=== PATIENT | female | born 1975 | race Caucasian/White ===

== ENCOUNTER 2017-06-04 07:51 | Inpatient (IN) ==
[2017-06-04] MEDS ORDERED: SODIUM CHLORIDE 0.9% 1,000 ML IV STA (08:38)
[2017-06-04] MEDS ORDERED: KETOROLAC 30 MG/1 ML VIAL IV STA (08:38)
[2017-06-04] MEDS ORDERED: KETOROLAC 30 MG/1 ML VIAL ONE (08:40)
--- NOTE | 2017-06-04 08:47 | Emergency Department Note ---
Jeremiah [place] Brooke, am scribing for, and in the presence of, Bruno Cheng MD 08:40 . Skylar [place] James D, MD, personally performed the services described in this documentation, ascribed by Mary Jo Daniles in my presence, and it is both accurate and complete [id number] . Arrival - Arrival Chief Complaint: Urogenital - Female Stated Complaint: fever 103 elevated sugar level ED Nursing Triage Note: fever for two days. pt c/o lower back pain and pressure when she urinates. reports hx of uti and kidney stones. has taken asa at home one hour ago Mode of Arrival: Wheelchair Limitations: No Limitations Source: Patient, RN Notes Reviewed Time Seen by Provider: 06/04/17 08:29 - History of Present Illness HPI Narrative: Patient is a 41 year old female who presents to the ED with c/o low back pain and dysuria that has been ongoing for the past two days. Patient says the low back pain is located on the right side. She says she does have some dysuria but says she also has "pressure" when urinating. Patient does have a history of kidney stones and says the pain she is having now feels like the pain she had with previous stones. Patient also has PMHx of HTN, migraines, NIDDM, and pancreatitis. Patient's Primary Care Provider is Dr. Hua. Onset (ago): day(s) (2) Date of Last Menstrual Period: last week Allergies/Adverse Reactions: Allergies Allergy/AdvReac Type Severity Reaction Status Date / Time codeine Allergy RASH Verified 12/29/15 22:58 Home Medications: Home Medications Medication Instructions Recorded Confirmed Type No Known Home Medications [No 06/04/17 06/04/17 History Known Home Medications] Review of System - Review of System 12 point system: reviewed and no additional remarkable complaints except as stated - Review of System Constitutional: Absent: fever Respiratory: Absent: respiratory distress Genitourinary female: Present: dysuria, other (pressure when urinating) Musculoskeletal: Present: lower back pain (right) Skin: Absent: rash Medical,Surgical,& Family Hx - Medical History Cardio: History of: Hypertension (NO LONGER TAKING MEDS) Neurology: History of: Migraine Endocrine: History of: Diabetes Mellitus (NIDDM) Gastrointestinal: History of: Pancreatitis (2005 (GALLSTONE CAUSE)) - Surgical History Reproductive Surgeries: Surgical HX of;: Section (X1) - Family History Family History: Reports;: Family Diabetes (MOM/SISTER), Family Heart Disease ( MOM/DAD/SISTER), Family Hypertension (MOM), Family Stroke (MOM) - Social History Smoking Status: Current every day smoker Exam Vital Signs: Vital Signs Temperature 100.3 F H 06/04/17 08:52 Pulse Rate 112 H 06/04/17 08:16 Respiratory Rate 22 06/04/17 08:16 Blood Pressure 125/66 06/04/17 08:16 O2 Sat by Pulse Oximetry 100 06/04/17 08:08 GENERAL: This is a well-nourished well-developed disheveled white female in no apparent distress. VITAL SIGNS: Reviewed HEENT: Head is atraumatic and normocephalic. Pupils are equal round react to light. Extraocular movements are intact. Oropharynx is benign with moist mucous membranes. NECK: Neck is soft and supple without tenderness. There are no masses. There is no lymphadenopathy. LUNGS: Lungs are clear to auscultation. Chest rises symmetrically. There is no chest wall tenderness. CV: Heart is regular rate and rhythm without murmurs rubs or gallops. ABDOMEN: Abdomen is soft, nontender to palpation. There are no abdominal abnormal masses palpated. There is no organomegaly. Bowel sounds are present and active. Minimal left CVA tenderness SKIN: Skin is warm and dry. No rash. EXTREMITIES: Patient has full range of motion without tenderness. There is no pedal edema. NEUROLOGIC: Awake alert and oriented 4. Cranial nerves II through XII are grossly intact. Motor is 5 over 5 in all extremities bilaterally. Course Course Narrative: Patient was given IV fluids and IV Rocephin in the emergency department. - Consultations Consultation #1: Discussed with hospitalist. Patient will be admitted to their service. Time: 10:27 Results - Labs CBC & BMP: 06/04/17 09:45 06/04/17 09:45 Lab Results: I have reviewed the patients labs Labs: Laboratory Tests 06/04/17 08:44 Urine pH 5.0 Ur Specific [place] 1.016 Urine Glucose (UA) >=500 Urine Leukocytes Moderate H Urine RBC 65 Urine WBC 120 - Diagnostic Findings Procedure: KUB x-ray: image reviewed by me (No evidence of ureteral stone.) Critical Care Time Critical Care Time: No Disposition Clinical Impression: Acute pyelonephritis, Diabetes mellitus Case discussed with: patient Disposition: Still a Patient Condition: Stable Time of Disposition: 10:27
[2017-06-04 09:04] LABS: Apearance,Urine CLOUDY (Clear); Bacteria,Urine Moderate /HPF (Few); Bilirubin,Urine Negative (Negative); Blood, Urine Large mg/dL (Negative); Glucose,Urine (UA) >=500 mg/dL (Negative); Hyaline Casts,Urine 5 /LPF (0-3); Ketones,Urine Negative (Negative); Mucus,Urine Many /LPF (Occasional); Nitrite,Urine Negative (Negative); Protein,Urine 100 MG/DL; RBC,Urine 65 /HPF (0-4); Squamous Epithelial Cell,Urine Occasional /HPF (0-10); Urine Color Yellow (Yellow); Urine Specific Gravity 1.016 (1.001-1.035); Urine Urobilinogen < 2.0 EU/DL (0.2-1.0); WBC,Urine 120 /HPF (0-6)
--- NOTE | 2017-06-04 09:22 | CT Report ---
CT abdomen pelvis wo con Indication: Abdominal pain. History of ureter stones. CT ABDOMEN AND PELVIS WITHOUT CONTRAST DLP: 634 mGy*cm. One or more of the following dose reduction techniques was used: Automated exposure control, adjustment of the mA and/or kV according the patient size, or use of iterative reconstruction techniques. Comparison: 06/08/2014. Technique: Axial noncontrast CT images of the abdomen and pelvis were obtained. Abdomen: Right kidney and ureter are unremarkable. Left kidney is enlarged with perinephric fat stranding and a small amount of inflammation tracking along the proximal left ureter. Small amount of left hydronephrosis noted. No calcified stones are present within the left urinary collecting system or bladder. Bladder is decompressed completely. Heart size is normal. Lung bases are clear. Fatty infiltration of the liver is present. Unenhanced liver, gallbladder, spleen, pancreas and right adrenal gland remain unremarkable. Partially calcified 16mm mass of the left adrenal gland is present, previously 12 mm in size and 2014. No bowel obstruction. No free fluid or free air. No pathologic lymphadenopathy. Pelvis: Normal appendix without inflammation. Urinary bladder is contracted. Uterus and adnexal structures are within normal limits. Rectosigmoid colon is unremarkable. No destructive bone lesions. Impression: 1. Left perinephric inflammation, enlargement of left kidney, minimal left hydronephrosis and mild prominence of the left proximal ureter without urolithiasis identified. Suspect recently passed stone. Alternatively, consider infection such as pyelonephritis. 2. Partially calcified left adrenal mass, now 16 mm in size, previously 12 mm 3 years ago. PROCEDURE INTERPRETED AT [facility] DEPARTMENT OF RADIOLOGY Final Report Signed by: Yonathan Eastman M.D.
--- NOTE | 2017-06-04 09:26 | XRay Report ---
XR KUB Indication: Ureter stone. Abdomen one view: No small bowel dilatation. Increased stool and gas projects over the colon, without dilatation. No evidence of free air. No abnormal calcifications or masses. Impression: Constipation without obstruction. No urolithiasis identified on plain film, confirmed on CT. PROCEDURE INTERPRETED AT [facility] DEPARTMENT OF RADIOLOGY Final Report Signed by: Yonathan Eastman M.D.
[2017-06-04] MEDS ORDERED: cefTRIAXone 1,000 MG in SODIUM CHLORIDE 0.9% 100 ML IV STA (09:40)
[2017-06-04] MEDS ORDERED: cefTRIAXone 1,000 MG VIAL ONE (09:41)
[2017-06-04 09:54] LABS: Basophils % 0.2 % (0.0-0.8); Hematocrit 31.3 VOL% (35.7-47.0); Hemoglobin 10.2 GM/DL (12.0-16.0); Immature Granulocytes Absolute 0.21 #; Lymphocytes # 1.2 10*3/uL (1.4-4.0); Lymphocytes % 5.9 % (21.3-54.2); Mean Corpuscular HGB Conc 32.6 GM/DL (32-36); Mean Corpuscular Hemoglobin 26 PG (27-34); Mean Corpuscular Volume 78.6 FL (87-102); Mean Platelet Volume 10.3 FL (9.6-12.0); Monocytes # 1.5 10*3/uL (0.11-0.8); Monocytes % 7.3 % (1.7-12.7); Neutrophils % 85.6 % (38.7-73.9); Platelet Count 247 T/CUMM (130-400); Red Blood Count 3.98 MC/CUMM (3.8-5.5); Red Cell Distribution Width 16.1 % (9.3-17.3)
[2017-06-04 10:15] LABS: Calcium 8.2 MG/DL (8.5-10.1); Osmolality,Calculated 275.7 MOS/KG (273-304); Potassium 4.4 MMOL/L (3.5-5.1)
[2017-06-04 10:17] LABS: Band Neutrophils 3 % (0-10); Giant Platelets Few; Hypochromasia 1+; Lymphocytes 10 % (20-55); Platelet Estimate Adequate; Segmented Neutrophils 78 % (50-85); Total Cells Counted 100
--- NOTE | 2017-06-04 11:49 | Hospitalist History & Physical ---
Assessment and Plan - Time spent with patient Time spent with patient: Greater than 30 minutes Time spent discussing smoking cessation with patient: 3 to 10 minutes (1) Acute pyelonephritis Status: Acute Assessment and plan: 41-year-old white female with a history of UTI and kidney stones. Reports today with left flank pain radiating to groin. CT shows perinephritic inflammation in the left kidney. No calculi are present. Patient has been started on IV Rocephin empirically. Maintenance IV fluids. Urine cultures and sensitivity pending. Follow-up with CBC, BMP in the a.m. Current Visit: Yes (2) UTI (urinary tract infection) Status: Acute Assessment and plan: Likely secondary to acute pyelonephritis. Urine cultures pending. Patient has been started on IV Rocephin Current Visit: Yes (3) Hypertension Status: Acute Assessment and plan: Currently well controlled on home medications. Continue home medications upon reconciliation. Current Visit: Yes (4) Diabetes mellitus Status: Acute Assessment and plan: Accu-Cheks before meals at bedtime. Sliding scale insulin as needed. Current Visit: Yes (5) Tobacco use Status: Acute Assessment and plan: Patient admits to smoking 1 pack per day. She is not currently interested in quitting. She will need a nicotine patch while here. Current Visit: Yes History of Present Illness Chief complaint: Low back pain, urinary pressure History of present illness: Ms. Wood is a 41 year old white female with past medical history significant for hypertension, ury-[id number] diabetes mellitus, UTI, renal calculi and tobacco abuse who presents to the ED today with complaints of low back pain and fever with onset 2 days ago. Patient reports that she was having mild dysuria with "pressure" upon urination. She states that she has had pains like this before related to kidney stones a UTI. She saw her PCP at [facility] on yesterday who told her that her symptoms were suspicious for pyelonephritis and instructed her to come to the ER. Patient decided to go home and subsequently reports subjective fever and diaphoresis with nausea and vomiting. On admission, patient is febrile with a temp of 100.3 and tachycardia with a pulse rate of 112. She does report left flank pain which radiates to the groin. She confirms decreased appetite, dysuria. Patient denies headache, blurry vision, chest pain, shortness of breath, abdominal pain, hematuria. CT of the abdomen and pelvis show enlarged left kidney with perinephric fat and a small amount of inflammation tracking along the proximal left ureter with no urolithiasis. KUB is unremarkable. Lab work is significant for WBC 21.0, hemoglobin 10.2, hematocrit 31.3, BUN 9, creatinine 0.90, glucose 132. Urinalysis shows elevated urobilinogen and moderate leukocytes. UC results of follow. Case has been discussed with Dr. Cheng, ER physician, and Dr. Palm, admitting physician, and the patient will be admitted to the hospital medicine service for further evaluation and treatment. Patient is a full code. Home medications have been reviewed and reconciled. Home Medications Medication Instructions Recorded Confirmed Type No Known Home Medications [No 06/04/17 06/04/17 History Known Home Medications] Allergies Allergy/AdvReac Type Severity Reaction Status Date / Time codeine Allergy RASH Verified 12/29/15 22:58 Medical,Surgical,& Family Hx - Medical History Cardio: History of: Hypertension (NO LONGER TAKING MEDS) Neurology: History of: Migraine Endocrine: History of: Diabetes Mellitus (NIDDM) Gastrointestinal: History of: Pancreatitis (2006 (GALLSTONE CAUSE)) - Surgical History Reproductive Surgeries: Surgical HX of;: Section (X1) - Family History Family History: Reports;: Family Diabetes (MOM/SISTER), Family Heart Disease ( MOM/DAD/SISTER), Family Hypertension (MOM), Family Stroke (MOM) - Social History Smoking Status: Current every day smoker (Smokes 1 pack per day) Have you smoked in the last 12 months: Yes Time spent discussing smoking cessation with patient: 3 to 10 minutes (Patient reports a desire to quit smoking "one day". Will need a nicotine patch while hospitalized.) Frequency of Alcohol Use: Rarely Type of Drug Use: None Marital Status: Lives With:: Spouse Functional capacity: independent ambulation 12 point system: reviewed and no additional remarkable complaints except as stated Exam - Constitutional Vitals: Period Temp Pulse Resp BP Sys/Burton Pulse Ox Last 24 Hr 100.3 F-100.3 F 112-112 22-22 125-125/66-66 100 Exam: General appearance: overweight, no acute distress - Head Head exam: Present: normocephalic, atraumatic - Eye Eye exam: Present: EOMI. Absent: conjunctival injection, nystagmus Pupils: Present: KENAN, normal accommodation - ENT ENT exam: Present: normal exam, normal external ear exam - Neck Neck exam: Present: normal inspection. Absent: lymphadenopathy, tenderness, thyromegaly - Respiratory Respiratory exam: Present: clear to auscultation bilaterally. Absent: rales, rhonchi, wheezes - Cardiovascular Cardiovascular exam: Present: Tachycardia. Absent: carotid bruit, gallop, rubs - GI/Abdominal GI/Abdominal exam: Present: normal bowel sounds. Absent: ascites, distended, mass - Extremities Exam Extremities exam: Present: normal inspection, normal capillary refill. Absent: edema - Back Exam Back exam: CVA tenderness (L) absent: CVA tenderness (R) - Neurological Exam Neurological exam: Present: alert, oriented X3, CN II-XII intact, reflexes normal - Psychiatric Psychiatric exam: Present: normal affect, normal mood - Skin Skin exam: Present: normal color, warm, dry Results - Labs CBC & BMP: 06/04/17 09:45 06/04/17 09:45 Lab Results: I have reviewed the past 24 hour labs
[2017-06-04] MEDS ORDERED: GLUCAGON 1 MG VIAL IM PRN (12:03)
[2017-06-04] MEDS ORDERED: NICOTINE 21 MG/24 HR PATCH TRANSDERM PRN (12:03)
[2017-06-04] MEDS ORDERED: DEXTROSE 50% 25 GM/50 ML SYRINGE IV PRN (12:03)
[2017-06-04] MEDS: ONDANSETRON 4 MG/2 ML VIAL IV PRN ×2 (13:25→20:26)
[2017-06-04] MEDS: ACETAMINOPHEN 325 MG TABLET PO PRN ×2 (13:25→17:24)
[2017-06-04] MEDS: SODIUM CHLORIDE 0.9% 1,000 ML IV SCH (13:27)
[2017-06-04] MEDS: PANTOPRAZOLE 40 MG TABLET PO SCH (13:27)
[2017-06-04] MEDS: INSULIN LISPRO 100 UNIT/ML SUBCUT SCH ×2 (17:01→23:40)
[2017-06-04] MEDS: LEVOFLOXACIN INJ 750 MG in PREMIX 1 EACH IV SCH (17:23)
[2017-06-04] MEDS ORDERED: TOPIRAMATE 25 MG TABLET PO ONE (19:23)
[2017-06-04] MEDS: KETOROLAC 30 MG/1 ML VIAL IV PRN (20:25)
[2017-06-05] MEDS: SODIUM CHLORIDE 0.9% 1,000 ML IV SCH ×2 (03:24→15:00)
[2017-06-05] MEDS: KETOROLAC 30 MG/1 ML VIAL IV PRN ×2 (03:25→09:37)
[2017-06-05] MEDS: ONDANSETRON 4 MG/2 ML VIAL IV PRN ×3 (03:25→21:21)
[2017-06-05 05:04] LABS: Basophils % 0.2 % (0.0-0.8); Eosinophils % 0.3 % (0.00-10.9); Hematocrit 29.7 VOL% (35.7-47.0); Hemoglobin 9.5 GM/DL (12.0-16.0); Immature Granulocytes Absolute 0.14 #; Lymphocytes # 0.7 10*3/uL (1.4-4.0); Lymphocytes % 4.9 % (21.3-54.2); Mean Corpuscular Hemoglobin 26 PG (27-34); Mean Corpuscular Volume 79.8 FL (87-102); Mean Platelet Volume 10.9 FL (9.6-12.0); Monocytes # 1.3 10*3/uL (0.11-0.8); Monocytes % 8.9 % (1.7-12.7); Neutrophils # 12.4 10*3/uL (1.4-7.4); Neutrophils % 84.7 % (38.7-73.9); Platelet Count 200 T/CUMM (130-400); Red Blood Count 3.72 MC/CUMM (3.8-5.5); Red Cell Distribution Width 16.2 % (9.3-17.3); White Blood Count 14.6 T/CUMM (4-12)
[2017-06-05 05:29] LABS: Osmolality,Calculated 284.4 MOS/KG (273-304); Potassium 3.8 MMOL/L (3.5-5.1)
[2017-06-05 05:38] LABS: Band Neutrophils 4 % (0-10); Hypochromasia 1+; Lymphocytes 7 % (20-55); Ovalocytes Slight; Platelet Estimate Adequate; Segmented Neutrophils 81 % (50-85); Total Cells Counted 100
[2017-06-05 05:39] LABS: Giant Platelets Few
[2017-06-05] MEDS: INSULIN LISPRO 100 UNIT/ML SUBCUT SCH ×3 (08:32→20:18)
[2017-06-05] MEDS: PANTOPRAZOLE 40 MG TABLET PO SCH (08:33)
[2017-06-05] MEDS: cefTRIAXone 1,000 MG in SODIUM CHLORIDE 0.9% 100 ML IV SCH (09:44)
--- NOTE | 2017-06-05 12:00 | Hospitalist Progress Note ---
Assessment and Plan (1) Leukocytosis Status: Acute Assessment and plan: We will repeat his CBC in the morning to target his sleep white count of less than 10,000. Patient is afebrile at this point. Current Visit: Yes (2) Acute pyelonephritis Status: Acute Assessment and plan: Patient is a gram-negative ran in the urine. I do not see any report on blood cultures yet. This patient will have repeat CBC BMP and magnesium tomorrow. Continue her on double coverage with ceftriaxone and levofloxacin. Verify and exact home treatment with oral antibiotics with the antibiogram to calm. She does have history of kidney stones and therefore about an antibiotic with delayed kill and good penetration in the urine, like a quinolone should be the choice. Treat for 10 extra days. Also give a probiotic for the same length of time. Current Visit: Yes Hospitalist: Subjective Interval history: Patient has been seen interviewed and examined and chart has been reviewed. A history of renal stones admitted yesterday with no nausea vomiting abdominal pain found to have pyelonephritis by CT scan. There is no obstructive pathology patient stated that had some bloody urine today with some julius in the collecting sieve. He still has a leukocytosis of 14,000 he has a gram-negative ran in the urine pending antibiogram. He was quite sick when she probably presented here to the point that I am treating her with both ceftriaxone and levofloxacin. I will hold off on her discharge until we know the antibiogram of this or at least when she feels better within normal white counts tomorrow at that point consider treating her with only one antibiotics orally and that would be levofloxacin for 10 days. Exam - Constitutional Vitals: Period Temp Pulse Resp BP Sys/Burton Pulse Ox Last 24 Hr 97.1 F-102.2 F 75-111 18-20 99-115/52-64 93-98 General appearance: over weight - Head Head exam: Present: normocephalic, atraumatic - Eye Eye exam: Present: EOMI Pupils: Present: KENAN - Respiratory Respiratory exam: Present: clear to auscultation bilaterally - Cardiovascular Cardiovascular exam: Present: regular rate and rhythm - GI/Abdominal GI/Abdominal exam: Present: normal bowel sounds, soft - Extremities Exam Extremities exam: Present: full ROM - Neurological Exam Neurological exam: Present: alert, oriented X3, CN II-XII intact - Psychiatric Psychiatric exam: Present: normal affect, normal mood - Skin Skin exam: Present: normal color, warm, dry Results - Labs CBC & BMP: 06/05/17 04:32 06/05/17 04:32 Lab Results: I have reviewed the past 24 hour labs (Gram-negative ran in the urine pending antibiogram. Repeat a BMP magnesium and CBC in the morning)
[2017-06-05] MEDS: LACTOBACILLUS RHAMNOSUS GG CAPSULE PO SCH ×2 (15:38→21:20)
[2017-06-05] MEDS: TOPIRAMATE 25 MG TABLET PO SCH ×2 (16:07→21:19)
[2017-06-05] MEDS: LEVOFLOXACIN INJ 750 MG in PREMIX 1 EACH IV SCH (20:21)
[2017-06-05] MEDS: IBUPROFEN 800 MG TABLET PO PRN (21:28)
[2017-06-06] MEDS: INSULIN LISPRO 100 UNIT/ML SUBCUT SCH ×3 (00:51→11:57)
[2017-06-06] MEDS: SODIUM CHLORIDE 0.9% 1,000 ML IV SCH ×2 (02:54→14:12)
[2017-06-06 05:31] LABS: Basophils % 0.3 % (0.0-0.8); Eosinophils % 0.3 % (0.00-10.9); Hematocrit 27.3 VOL% (35.7-47.0); Hemoglobin 8.8 GM/DL (12.0-16.0); Immature Granulocytes % 1.3 %; Immature Granulocytes Absolute 0.09 #; Lymphocytes # 1.3 10*3/uL (1.4-4.0); Lymphocytes % 18.2 % (21.3-54.2); Mean Corpuscular HGB Conc 32.2 GM/DL (32-36); Mean Corpuscular Hemoglobin 26 PG (27-34); Mean Corpuscular Volume 80.1 FL (87-102); Mean Platelet Volume 11.4 FL (9.6-12.0); Monocytes % 14.8 % (1.7-12.7); Neutrophils # 4.5 10*3/uL (1.4-7.4); Neutrophils % 65.1 % (38.7-73.9); Platelet Count 188 T/CUMM (130-400); Red Blood Count 3.41 MC/CUMM (3.8-5.5); Red Cell Distribution Width 16.4 % (9.3-17.3); White Blood Count 6.9 T/CUMM (4-12)
[2017-06-06 06:02] LABS: Band Neutrophils 4 % (0-10); Giant Platelets Few; Hypochromasia Slight; Lymphocytes 15 % (20-55); Platelet Estimate Normal; Segmented Neutrophils 75 % (50-85); Total Cells Counted 100
[2017-06-06 06:03] LABS: Microcytosis Slight
[2017-06-06 06:11] LABS: Calcium 8.2 MG/DL (8.5-10.1); Magnesium 2.3 MG/DL (1.8-2.4); Osmolality,Calculated 283.8 MOS/KG (273-304); Potassium 4.2 MMOL/L (3.5-5.1)
[2017-06-06] MEDS: PANTOPRAZOLE 40 MG TABLET PO SCH (08:20)
[2017-06-06] MEDS: TOPIRAMATE 25 MG TABLET PO SCH (08:20)
[2017-06-06] MEDS: IBUPROFEN 800 MG TABLET PO PRN (08:21)
[2017-06-06] MEDS: cefTRIAXone 1,000 MG in SODIUM CHLORIDE 0.9% 100 ML IV SCH (08:22)
[2017-06-06] MEDS: LACTOBACILLUS RHAMNOSUS GG CAPSULE PO SCH (08:22)
[2017-06-06 11:42] VITALS: BP 108/61
--- NOTE | 2017-06-06 13:11 | Discharge Summary ---
<Otilia Conrad - Last Filed: 06/06/17 16:21> Hospital Course - Hospital Course Hospital Course: Ms. Wood is a 41 year old white female with past medical history significant of hypertension, lau-cweabwb-dilhiligc diabetes mellitus, UTI, renal calculi and tobacco abuse who presents to the ED on 06/04 with complaints of low back pain and fever that started 2 days ago. Patient reports that she was having mild dysuria with "pressure" upon urination. She states that she has had pains like this before when she had an UTI. She saw her PCP at [facility] care [facility] who instructed her to come to the ER. Patient decided to go home instead and later experienced a subjective fever and diaphoresis with nausea and vomiting. On admission, patient had a temp of 100.3 and tachycardia with a pulse rate of 112. She reported left flank pain which radiates to the groin. CT of the abdomen and pelvis show enlarged left kidney with perinephric fat and a small amount of inflammation tracking along the proximal left ureter with no urolithiasis. KUB was unremarkable. Lab work reveals of WBC 21.0. Urinalysis shows elevated urobilinogen and moderate leukocytes. Patient was admitted to the hospital medicine service. Pt. was started on IV antibiotics ( ceftriaxone and levofloxacin). Patient's symtpoms improved. She was transitioned to PO Levaquin. Pt. is stable for discharge. Discharge Plan - Discharge Data Disposition: Disch To Home/Self Care - Discharge Medications New Lactobacillus Rhamnosus GG [Culturelle] 1 capsule PO BID #20 capsule Levofloxacin Tab [Levaquin Tab] 750 mg PO DAILY #10 tablet - Follow Up or Referral - Forms/Instructions Exam - Constitutional Vitals: Period Temp Pulse Resp BP Sys/Burton Pulse Ox Last 24 Hr 96.6 F-99.5 F 61-81 18-20 94-140/61-80 93-99 Discharge Results Labs on day of discharge: Labs from last 24 hours 06/06/17 06/06/17 06/06/17 10:54 07:39 04:58 WBC RBC Hgb Hct MCV MCH MCHC RDW Plt Count MPV Neut % (Auto) Lymph % (Auto) Frontier % (Auto) Eos % (Auto) Baso % (Auto) Neut # (Auto) Lymph # (Auto) Frontier # (Auto) Eos # (Auto) Baso # (Auto) Total Counted Immature Gran % Nucleated RBC % Immature Gran # Segmented Neutrophils Band Neutrophils Lymphocytes Monocytes Nucleated RBCs # Platelet Estimate Giant Platelets Immature Plt Fraction Hypochromasia Microcytosis Sodium Potassium Chloride Carbon Dioxide Anion Gap BUN Creatinine GFR Calculation BUN/Creatinine Ratio Glucose POC Glucose 116 H 100 107 H Calculated Osmolality Calcium Magnesium 06/06/17 06/06/17 06/06/17 04:35 04:35 00:31 WBC 6.9 D RBC 3.41 L Hgb 8.8 L Hct 27.3 L MCV 80.1 L MCH 26 L MCHC 32.2 RDW 16.4 Plt Count 188 MPV 11.4 Neut % (Auto) 65.1 Lymph % (Auto) 18.2 L Frontier % (Auto) 14.8 H Eos % (Auto) 0.3 Baso % (Auto) 0.3 Neut # (Auto) 4.5 Lymph # (Auto) 1.3 L Frontier # (Auto) 1.0 H Eos # (Auto) 0.0 Baso # (Auto) 0.0 Total Counted 100 Immature Gran % 1.3 Nucleated RBC % 0.0 Immature Gran # 0.09 Segmented Neutrophils 75 Band Neutrophils 4 Lymphocytes 15 L Monocytes 6 Nucleated RBCs # 0.00 Platelet Estimate Normal Giant Platelets Few Immature Plt Fraction 0.0 Hypochromasia Slight Microcytosis Slight Sodium 144 Potassium 4.2 Chloride 113 H Carbon Dioxide 23 Anion Gap 12.2 BUN 11 Creatinine 0.90 GFR Calculation 89 BUN/Creatinine Ratio 12.00 Glucose 89 POC Glucose 103 Calculated Osmolality 283.8 Calcium 8.2 L Magnesium 2.3 06/05/17 16:19 WBC RBC Hgb Hct MCV MCH MCHC RDW Plt Count MPV Neut % (Auto) Lymph % (Auto) Frontier % (Auto) Eos % (Auto) Baso % (Auto) Neut # (Auto) Lymph # (Auto) Frontier # (Auto) Eos # (Auto) Baso # (Auto) Total Counted Immature Gran % Nucleated RBC % Immature Gran # Segmented Neutrophils Band Neutrophils Lymphocytes Monocytes Nucleated RBCs # Platelet Estimate Giant Platelets Immature Plt Fraction Hypochromasia Microcytosis Sodium Potassium Chloride Carbon Dioxide Anion Gap BUN Creatinine GFR Calculation BUN/Creatinine Ratio Glucose POC Glucose 101 Calculated Osmolality Calcium Magnesium DS: Provider Date of admission: 06/04/17 10:43 Primary care physician: . No PCP Attending physician on admission: Miah Palm MD Discharging clinician: Otilia Conrad NP <Roya Hannah - Last Filed: 06/22/17 14:02> Hospital Course - Time spent with patient Time with patient DS: Less than 30 minutes Diagnosis - Discharge Diagnosis (1) Acute pyelonephritis Status: Resolved (2) Diabetes mellitus Status: Chronic (3) Hypertension Status: Chronic (4) Leukocytosis Status: Resolved Discharge Plan - Discharge Data Condition at Discharge: Stable Discharge Diet: advance to your usual diet Activity: increase activity as tolerated Hygiene: no restrictions Weight Bearing at Discharge: weight bear as tolerated Contact your physician if you experience:: fever over 101, Nausea/Vomiting Exam - Constitutional General appearance: normal weight - Head Head exam: Present: normocephalic, atraumatic - Eye Eye exam: Present: EOMI Pupils: Present: KENAN - ENT ENT exam: Present: normal exam - Neck Neck exam: Present: normal inspection - Respiratory Respiratory exam: Present: clear to auscultation bilaterally. Absent: rhonchi, wheezes - Cardiovascular Cardiovascular exam: Present: regular rate and rhythm - GI/Abdominal GI/Abdominal exam: Present: normal bowel sounds, soft. Absent: tenderness - Extremities Exam Extremities exam: Present: normal inspection - Back Exam Back exam: Present: normal inspection - Neurological Exam Neurological exam: Present: alert, oriented X3 - Psychiatric Psychiatric exam: Present: normal affect, normal mood - Skin Skin exam: Present: warm, intact
== END 2017-06-06 14:40 | disposition home or self-care (01) | DRG 463 ==
LOC: N.ED 07:51 → N.EDINP 10:43 → SUATTDRO 10:43 → N.2E 11:13
PROVIDERS: ADMIT Internal Medicine Infectious Disease; ATTEND Internal Medicine